=== PATIENT | female | born 1995 | race African-American/Black ===

== ENCOUNTER 2017-01-26 21:21 | Emergency (ER) | payer OTHER ==
[2017-01-26 21:32] VITALS: BP 151/90; PULSE 112; TEMP 98.1; BMI 26.6
--- NOTE | 2017-01-26 22:18 | PDOC ---
History of Present Illness - General Chief Complaint: Injury Stated Complaint: ANKLE PAIN Time Seen by Provider: 01/26/17 21:39 History Source: Patient Exam Limitations: No Limitations - History of Present Illness Initial Comments: 01/26/17 22:16 CC PAIN AND SWELLING POST TRAMPOLINE USE TODAY FOOT AND ANKLE Occurred: reports: just prior to arrival Severity: reports: mild Pain Location: reports: lower extremity Method of Injury: Yes: fall Past History - Past Medical History Allergies/Adverse Reactions: Allergies Allergy/AdvReac Type Severity Reaction Status Date / Time No Known Allergies Allergy Verified 01/26/17 21:32 Home Medications: Ambulatory Orders NK [No Known Home Medication] 01/26/17 Thyroid Disease: Yes - Psycho/Social/Smoking Cessation Hx Anxiety: No Suicidal Ideation: No Smoking History: Never smoked Have you smoked in the past 12 months: No Information on smoking cessation initiated: No Hx Alcohol Use: No Drug/Substance Use Hx: No Substance Use Type: None Review of Systems - Review of Systems Constitutional: No: Chills, Fever, Malaise Respiratory: No: Symptoms reported, Cough Cardiac (ROS): No: Symptoms Reported Musculoskeletal: Yes: Joint Pain, Joint Swelling. No: Back Pain, Neck Pain Integumentary: No: Symptoms Reported, Erythema Neurological: No: Symptoms reported, Numbness, Paresthesia, Tingling *Physical Exam - Vital Signs Last Vital Signs Temp Pulse Resp BP Pulse Ox 98.1 F 112 H 18 151/90 99 01/26/17 21:28 01/26/17 21:28 01/26/17 21:28 01/26/17 21:28 01/26/17 21:28 - Physical Exam General Appearance: Yes: Appropriately Dressed. No: Apparent Distress Neck: positive: Supple. negative: Tender, Rigid Respiratory/Chest: positive: Lungs Clear Extremity: positive: Other (STS RIGH ANKLE WITH TENDERNESS TO LATERAL MALL. ALSO TENDER AT ANTERIOR ANKLE) Integumentary: positive: Normal Color, Dry, Warm. negative: Cyanotic, Erythema , Ecchymosis Neurologic: positive: Alert, Normal Mood/Affect. negative: Fully Oriented, Sensory Deficit ED Treatment Course - ADDITIONAL ORDERS Additional order review: Laboratory Results 01/26/17 21:45 Urine HCG, Qual Negative - RADIOLOGY Radiology Studies Ordered: Category Date Time Status ANKLE & FOOT-RIGHT* [RAD] Stat Radiology 01/26/17 21:45 Ordered Medical Decision Making - Medical Decision Making 01/26/17 22:51 XRAY= NEGATIVE, READ BY THIS ECONOMIC RESEARCH ASSISTANT; WILL SUGGEST ELEVATION, ADVIL FOR PAIN, REST X 2 DAYS; FOLLOW UP LOCAL MD 1 WEEK IF NO BETTER *DC/Admit/Observation/Transfer Diagnosis at time of Disposition: Strain of right ankle Qualifiers: Encounter type: initial encounter Qualified Code(s): S96.911A - Strain of unspecified muscle and tendon at ankle and foot level, right foot, initial encounter - Discharge Dispostion Disposition: HOME Condition at time of disposition: Stable Admit: No - Patient Instructions Additional Instructions: ELEVATE ANKLE; ICE AREA; MOTRIN 400MG 3 TIMES DAILYSEE LOCAL MD 1 WEEK IF NO BETTER
[2017-01-26] MEDS ORDERED: IBUPROFEN 400 MG TABLET (FP) PO ONE ×2 (22:53→22:58)
== END 2017-01-26 23:00 | disposition home or self-care (01) ==
LOC: JERFT 21:21 → SUPCPDRO 21:21 → JERFT 23:00
DX: S96.911A Strain of unspecified muscle and tendon at ankle and foot level, right foot, initial encounter (principal); Y93.44 Activity, trampolining; X58.XXXA Exposure to other specified factors, initial encounter; Y92.9 Unspecified place or not applicable; E07.9 Disorder of thyroid, unspecified
CPT/HCPCS: 73610-TC-RT; 73630-TC-RT; 84703; 99281-25

== ENCOUNTER 2017-03-29 12:35 | Day surgery (SDC) | payer OTHER ==
[2017-03-08 16:25] VITALS: BMI 26.6
[2017-03-29 13:17] VITALS: BP 136/78; PULSE 110; TEMP 99.2
[2017-03-29] MEDS ORDERED: ROCURONIUM BROMIDE 50 MG/5 ML VIAL ONE (13:31)
[2017-03-29] MEDS ORDERED: PROPOFOL 20 ML ONE (13:31)
[2017-03-29] MEDS ORDERED: MIDAZOLAM HCL 2 MG/2 ML SINGLE DOSE VIAL ONE (13:31)
[2017-03-29] MEDS ORDERED: SUCCINYLCHOLINE CHLORIDE 200 MG/10 ML VIAL ONE (13:31)
[2017-03-29] MEDS ORDERED: LIDOCAINE 1%/EPI 1:100000 (50 ML MULTI DOSE VIAL) ONE (13:32)
[2017-03-29] MEDS ORDERED: MICROFIBRILLAR COLLAGEN 1 GM EACH ONE (13:32)
[2017-03-29] MEDS ORDERED: DESFLURANE GAS 240 ML BOTTLE IH ONE (13:35)
== END 2017-03-29 15:13 | disposition home or self-care (01) ==
LOC: JASU-SURG 12:35
PROVIDERS: ATTEND Surgery
PROC: [UNRECOGNIZED PROCEDURE] (principal; 2017-03-29)
DX: Z53.8 Procedure and treatment not carried out for other reasons (principal)
CPT/HCPCS: 36415; 84702; 84703

== ENCOUNTER 2018-11-14 15:59 | Emergency (ER) | payer OTHER ==
[2018-11-14 16:27] VITALS: BP 122/72; PULSE 88; TEMP 98.7; BMI 30.4
[2018-11-14] MEDS ORDERED: ACETAMINOPHEN 500 MG TABLET (FP) PO ONE (16:27)
--- NOTE | 2018-11-14 16:27 | PDOC ---
Rapid Medical Evaluation Time Seen by Provider: 11/14/18 16:24 Medical Evaluation: Allergies Allergy/AdvReac Type Severity Reaction Status Date / Time No Known Allergies Allergy Verified 03/29/17 13:10 11/14/18 16:24 The patient presents with a chief complaint of: low back pain after lifting a window, currently 14 weeks , no vag bleeding c/o of mild lower abd pain , no meds taken I have performed a brief in-person evaluation of this patient; Pertinent physical exam findings: ambulatory, in no respiratory distress, I have ordered the following: tylenol, preg u/s The patient will proceed to the ED for further evaluation. Discharge Disposition - Diagnosis Low back pain - Referrals Referrals: Ryan Magaña MD [Primary Care Provider] - - Patient Instructions - Post Discharge Activity
[2018-11-14] MEDS ORDERED: ACETAMINOPHEN 325 MG TABLET (FP) ONE (17:14)
--- NOTE | 2018-11-14 18:22 | PDOC ---
History of Present Illness - General Chief Complaint: Back Pain Stated Complaint: Back Pain Time Seen by Provider: 11/14/18 16:24 History Source: Patient Exam Limitations: No Limitations - History of Present Illness Initial Comments: 11/14/18 19:07 Pt is a 23 y/o F currently 12 weeks , who presents to the ED for low back pain. Pt states that she was trying to open a heavy window when she felt her back spasm. She states that the pain is mostly on the right. Denies trauma or falling. Denies fevers, chills, frequency, urgency, hematuria, weakness to the extremites, saddle anesthesia, bladder/bowel incontinence, and vaginal bleeding. Past History - Travel Traveled outside of the country in the last 30 days: No Close contact w/someone who was outside of country & ill: No - Past Medical History Allergies/Adverse Reactions: Allergies Allergy/AdvReac Type Severity Reaction Status Date / Time No Known Allergies Allergy Verified 11/14/18 16:25 Home Medications: Ambulatory Orders NK [No Known Home Medication] 11/14/18 Anemia: Yes CVA: No COPD: No HTN: Yes Thyroid Disease: Yes - Suicide/Smoking/Psychosocial Hx Smoking History: Never smoked Have you smoked in the past 12 months: No Information on smoking cessation initiated: No Hx Alcohol Use: No Drug/Substance Use Hx: No Substance Use Type: Alcohol Hx Substance Use Treatment: No Review of Systems - Review of Systems Able to Perform ROS?: Yes Comments:: 11/14/18 19:09 CONSTITUTIONAL: Absent: fever, chills, diaphoresis, generalized weakness, malaise, loss of appetite GASTROINTESTINAL: Absent: abdominal pain, abdominal distension, nausea, vomiting, diarrhea, constipation, melena, hematochezia GENITOURINARY: Absent: dysuria, frequency, urgency, hesitancy, hematuria, flank pain, genital pain, vaginal bleeding MUSCULOSKELETAL: Present: low back pain Absent: arthralgia, joint swelling SKIN: Absent: rash, itching, pallor NEUROLOGIC: Absent: headache, focal weakness or paresthesias, dizziness, unsteady gait, seizure, mental status changes, bladder or bowel incontinence PSYCHIATRIC: Absent: anxiety, depression, suicidal or homicidal ideation, hallucinations. Is the patient limited Tamazight proficient: No *Physical Exam - Vital Signs Last Vital Signs Temp Pulse Resp BP Pulse Ox 98.7 F 88 16 122/72 100 11/14/18 16:25 11/14/18 16:25 11/14/18 16:25 11/14/18 16:25 11/14/18 16:25 - Physical Exam Comments: 11/14/18 19:09 GENERAL: Well developed, well nourished. Awake and alert. No acute distress. HEENT: Normocephalic, atraumatic. PERRLA, EOMI. No conjunctival pallor. Sclera are non- icteric. Moist mucous membranes. Oropharynx is clear. NECK: Supple. Full ROM. No JVD. Carotid pulses 2+ and symmetric, without bruits. No thyromegaly. No lymphadenopathy. ABDOMINAL: Soft. Non-tender. Non-distended. No rebound or guarding. No organomegaly. Normoactive bowel sounds. MUSCULOSKELETAL TTP of the paraspinous muscles along L3-L5 with palpable knot. No midline tenderness. (-) straight leg raise b/l. Normal range of motion at all joints. No bony deformities or tenderness. No CVA tenderness. EXTREMITIES: No cyanosis. No clubbing. No edema. No calf tenderness. SKIN: Warm and dry. Normal capillary refill. No rashes. No jaundice. NEUROLOGICAL: Alert, awake, appropriate. Cranial nerves 2-12 intact. No deficits to light touch and temperature in face, upper extremities and lower extremities. No motor deficits in the in face, upper extremities and lower extremities. Normoreflexic in the upper and lower extremities. Normal speech. Toes are down- going bilaterally. Gait is normal without ataxia. PSYCHIATRIC: Cooperative. Good eye contact. Appropriate mood and affect. Moderate Sedation - Procedure Monitoring Vital Signs: Procedure Monitoring Vital Signs Temperature 98.7 F 11/14/18 16:25 Pulse Rate 88 11/14/18 16:25 Respiratory Rate 16 11/14/18 16:25 Blood Pressure 122/72 11/14/18 16:25 O2 Sat by Pulse Oximetry (%) 100 11/14/18 16:25 ED Treatment Course - Medications Given in the ED: ED Medications Discontinued Medications Generic Name Dose Route Start Last Admin Trade Name Freq PRN Reason Stop Dose Admin Acetaminophen 975 mg 11/14/18 16:27 11/14/18 17:17 Tylenol - PO 11/14/18 16:28 650 mg ONCE ONE Administration Medical Decision Making - Medical Decision Making 11/17/18 09:10 Pt is a 23 y/o F, 12 weeks , who presents to the ED with low back pain after lifting a heavy window. -Pt with TTP of the R paraspinous muscles, L3-L5, with palpable knot consistent with muscle spasm. Negative straight leg raise testing b/l. -No trauma, or fever. No saddle anesthesia or bladder/bowel incontinence. No CVA tenderness. - US shows a single IUP with a heart rate in the 150's. Normal amniotic fluid noted. -Pt is neurologically intact on exam with no focal findings. -Tylenol given with relief of symptoms -DC home. Ortho follow up given for if symptoms do not resolve. -I discussed the physical exam findings, ancillary test results and final diagnoses with the patient. I answered all of the patient's questions. The patient was satisfied with the care received and felt comfortable with the discharge plan and treatment plan. The Patient agrees to follow up with the primary care physician/specialist within 24-72 hours. Return precautions were given. *DC/Admit/Observation/Transfer Diagnosis at time of Disposition: Low back pain Qualifiers: Chronicity: acute Back pain laterality: right Sciatica presence: without sciatica Qualified Code(s): M54.5 - Low back pain - Discharge Dispostion Disposition: HOME Condition at time of disposition: Stable Decision to Admit order: No - Referrals Referrals: Ryan Magaña MD [Primary Care Provider] - - Patient Instructions Printed Discharge Instructions: DI for Low Back Pain Additional Instructions: You have low back pain due to a muscle spasm. Please take Tylenol 650mg every 4 hours to help with the pain. You may use warm compresses on your back to help with her symptoms. Please follow-up with your primary care doctor. If your symptoms do not resolve in 3-5 days, follow-up with orthopedics. A referral has been provided for you. Return to the emergency department if you have worsening back pain, bladder or bowel incontinence, numbness and tingling in her legs, changes in the way you walk, or any new or worsening symptoms. The ultrasound of the baby was normal with a heart rate of 150 - Post Discharge Activity Forms/Work/School Notes: Back to Work
== END 2018-11-14 18:24 | disposition home or self-care (01) ==
LOC: JERFT 15:59
DX: O26.891 Other specified pregnancy related conditions, first trimester (principal); O99.89 Other specified diseases and conditions complicating pregnancy, childbirth and the puerperium; M62.830 Muscle spasm of back; M54.5 Low back pain; O16.1 Unspecified maternal hypertension, first trimester; Z3A.13 13 weeks gestation of pregnancy
CPT/HCPCS: 76801-TC; 99281-25

== ENCOUNTER 2019-05-22 07:40 | Inpatient (IN) | payer OTHER ==
[2019-05-22] MEDS ORDERED: DINOPROSTONE 10 MG VAGINAL SUPPOSITORY VG ONE ×2 (07:58→21:59)
[2019-05-22 08:29] VITALS: BMI 34.5
[2019-05-22] MEDS ORDERED: PROMETHAZINE HCL 25 MG/1 ML VIAL IVPUSH ONE (08:35)
[2019-05-22] MEDS ORDERED: BUTORPHANOL TARTRATE 1 MG/ML VIAL IVPB ONE (08:35)
[2019-05-22 09:06] LABS: HEMOGLOBIN 12.9 GM/dL (10.7-15.3); MCH 28.2 pg (25.7-33.7)
[2019-05-22 09:08] LABS: BASO % 0.2 % (0-2.0); HEMATOCRIT 37.8 % (32.4-45.2); LYMPH % 25.7 % (8-40); MEAN CELL VOLUME 82.9 fl (80-96); MEAN PLT VOLUME 8.2 fl (7.5-11.1); MONO % 7.3 % (3.8-10.2); NEUT % 65.8 % (42.8-82.8); PLATELET COUNT 233 K/MM3 (134-434); RBC 4.56 M/mm3 (3.60-5.2); RDW 14.6 % (11.6-15.6); WHITE BLOOD COUNT 9.7 K/mm3 (4.0-10.0)
--- NOTE | 2019-05-22 09:24 | HP ---
Past Medical History - Admission History of Present Illness: 23 y/o with SIUP 40w6d here for inductionof labor. Pt has hyperthyroidism , on methimazole and followed by endocrinology throughout . Otherwise uncomplicated. GBS negative. Denies contractions/cramps/LOF/VB. + FM. History Source: Patient, Medical Record Limitations to Obtaining History: No Limitations - Past Medical History Cardiovascular: No: HTN Pulmonary: No: Asthma Hepatobiliary: No: Hepatitis B, Hepatitis C Renal/: No: UTI Reproductive: No: Ectopic , Fibroids, PID ...: 2 ...Para: 0 ...Term: 0 ...: 0 ...Spon : 0 ...Induced : 1 ...Multiple Gestation: 0 ...LMP: 08/09/18 ... Weeks Gestation by Dates: 40.6 ...EDC by Dates: 05/16/19 ...EDC by Sono: 05/16/19 Heme/Onc: No: Anemia Infectious Disease: No: HIV, MRSA, STD's Psych: No: Anxiety, Bipolar, Depression Endocrine: Yes: Hyperthyroidism (on methimazole) - Past Surgical History Past Surgical History: Yes: None Hx Myomectomy: No Hx Transabdominal Cerclage: No - Smoking History Smoking history: Never smoked Have you smoked in the past 12 months: No - Alcohol/Substance Use Hx Alcohol Use: No - Social History ADL: Independent History of Recent Travel: No Home Medications - Allergies Allergies/Adverse Reactions: Allergies Allergy/AdvReac Type Severity Reaction Status Date / Time No Known Allergies Allergy Verified 05/22/19 08:29 - Home Medications Home Medications: Ambulatory Orders Vitamins (Sjr) - 1 tab PO DAILY 05/03/19 Propylthiouracil 50 mg PO DAILY 05/22/19 Physical Exam - Maternity Vital Signs: Vital Signs Temperature 98.6 F 05/22/19 08:22 Pulse Rate 82 05/22/19 08:22 Respiratory Rate 20 05/22/19 08:22 Blood Pressure 126/77 05/22/19 08:22 O2 Sat by Pulse Oximetry (%) Constitutional: Yes: Well Nourished, No Distress, Calm Eyes: Yes: Conjunctiva Clear, EOM Intact HENT: Yes: Atraumatic, Normocephalic Neck: Yes: Trachea Midline Cardiovascular: Yes: Regular Rate and Rhythm Lungs: Clear to auscultation - Abdominal Exam/OB Number of Fetuses: Single Presentation: Vertex Contractions: Yes Regularity: Irregular Intensity: Unaware Category: I Accelerations: Uniform Decelerations: None - Vaginal Exam/OB Dilatation (cm): 0 Effacement (%): 0 Amniotic Membrane Status: Intact Presentation: Vertex/Position Station: -3 - Physical Exam Psychiatric: Yes: Alert, Oriented - Labs Lab Results: CBC, BMP 05/22/19 08:20 Hemorrhage Risk Assessment - Risk Factors Medium Risk Factors: Yes: None High Risk Factors: Yes: None Risk Score: 1 Risk Level: Medium Risk Problem List - Problems (1) Post-dates Code(s): O48.0 - POST-TERM Qualifiers: Post-term type: 40-42 weeks gestation Qualified Code(s): O48.0 - Post-term (2) Hyperthyroidism affecting Code(s): O99.280 - ENDO, NUTRITIONAL AND METAB DISEASES COMP PREG, UNSP TRI; E05.90 - THYROTOXICOSIS, UNSP WITHOUT THYROTOXIC CRISIS OR STORM Assessment/Plan FHTs reactive continue methimazole for hyperthyroid IOL, cervidil placed, re evaluate 12 hours regular diet ok until active labor GBS neg
[2019-05-22 09:27] LABS: PROTHROMBIN TIME (PATIENT) 11.8 SEC (9.7-13.0)
[2019-05-22 09:30] LABS: ACTIVATED PTT 28.5 SECONDS (25.2-36.5)
[2019-05-22 09:38] LABS: BLOOD UREA NITROGEN 10.4 mg/dL (7-18); CALCIUM 8.7 mg/dL (8.5-10.1); CREATININE 0.6 mg/dL (0.55-1.3); POTASSIUM 3.6 mmol/L (3.5-5.1)
[2019-05-22] MEDS: DEXTROSE 5%-LACTATED RINGERS 1,000 ML IV SCH (16:15)
--- NOTE | 2019-05-22 21:58 | PN ---
Progress Note, Labor Vaginal Exam #2 Labor Exam Date: 05/22/19 Labor Exam Time: 20:39 Dilatation: 0 Effacement (%): 0 Amniotic Membrane Status: Intact Presentation: Vertex/Position Station: -3 (exam per nursing cervidil removed due to variable decelserations will monitor)
[2019-05-23] MEDS: DEXTROSE 5%-LACTATED RINGERS 1,000 ML IV SCH (01:45)
--- NOTE | 2019-05-23 06:34 | PN ---
Ante-Partal Exam - Subjective Subjective: Pt seen/evaluated and was asleep upon my arrival. First dose of cervidil was removed at approx 2030 after noting recurrent variable decelerations. Had second dose of cervidil placed overnight by laborist contract loader with category 1 tracing upon insertion. After approx 6 hours of cervidil the FHR tracing began having recurrent variable decelerations. The cervidil was removed, the patient' s position changed and she was given IV fluid. The tracing improved and is now category 1. Vital Signs: Vital Signs Temperature 97.9 F 05/23/19 04:00 Pulse Rate 79 05/23/19 06:00 Respiratory Rate 20 05/23/19 06:00 Blood Pressure 130/67 05/23/19 06:00 O2 Sat by Pulse Oximetry (%) Bleeding: Yes Bleeding Description: Mild Headache: No Visual changes: No Right upper quadrant pain: No Pain (scale 1-10): 2 - Contractions Contractions: Yes Regularity: Regular Intensity: Mild Monitor Mode: External - Exam during Labor Heart Rate: 135 Variability: Moderate Category: I Monitor Accelerations: Present Monitor Decelerations: None Exam: Vaginal Dilatation (cm): 2 Effacement (%): 70 Amniotic Membrane Status: Intact Presentation: Vertex Station: -3 - Intrapartum Hemorrhage Risk Medium Risk Factors: None High Risk Factors: None Risk Score: 0 Risk Level: Low Risk - Assessment/Plan Assessment/Plan: 23 y/o P0 with SIUP at 41 weeks cat 1 tracing now without medication discussed plan of care with patient including starting pitocin, pt concerned for FHR decelerations with pitocin as she had recurrent variables with cervidil pt offered this vs. elective c section pt aware of risks of pitocin vs c section pt desires elective c section anesthesia made aware, nursing staff aware
[2019-05-23] MEDS: ELECTROLYTE-148 SOLN 1,000 ML IV SCH (07:00)
--- NOTE | 2019-05-23 07:13 | PN ---
Ante-Partal Exam - Subjective Subjective: Pt now benito every 2 minutes on her own without pitocin. Vital Signs: Vital Signs Temperature 97.9 F 05/23/19 04:00 Pulse Rate 79 05/23/19 06:00 Respiratory Rate 20 05/23/19 06:00 Blood Pressure 130/67 05/23/19 06:00 O2 Sat by Pulse Oximetry (%) - Assessment/Plan Assessment/Plan: Discussed with patient again the plan. Pt aware she is benito every 2 minutes, she is unaware of contractions at this time. Discussed proceeding with labor now as tracing category 1 and she is having her own contractions, may not need to start pitocin. pt declines, she now desires elective c section at this time does not wish to proceed with induction. Anesthesia aware nursery/nursing aware
[2019-05-23] MEDS ORDERED: CITRIC ACID/SODIUM CITRATE 30 ML UNIT-DOSE CUP PO ONE (07:14)
[2019-05-23] MEDS ORDERED: oxyCODONE HCL 5 MG TABLET PO PRN ×2 (07:20)
[2019-05-23] MEDS ORDERED: METHYLERGONOVINE MALEATE 0.2 MG/1 ML AMP IM PRN (07:20)
[2019-05-23] MEDS ORDERED: IBUPROFEN 800 MG/8 ML IJ IVPB PRN (07:20)
[2019-05-23] MEDS ORDERED: OXYTOCIN 20 UNITS in 0.9% NS 20 UNIT/1,000 ML INFUS.BAG IV ONE (07:45)
[2019-05-23] MEDS ORDERED: morphine SULFATE/PF 0.5 MG/ML (2cc Syringe - QUVA) ONE (07:48)
--- NOTE | 2019-05-23 07:59 | PN ---
Progress Note (short form) - Note Progress Note: Discussed c section with patient in detail risks including bleeding/infection/damage to surrounding structures/possible need for repeat c section and risks of future c sections discussed with pt pt aware of all risks patient's mother and grandmother in the room all questions answered informed consent obtained pt still desires elective c section will proceed Problem List - Problems (1) Post-dates Code(s): O48.0 - POST-TERM Qualifiers: Post-term type: 40-42 weeks gestation Qualified Code(s): O48.0 - Post-term (2) Hyperthyroidism affecting Code(s): O99.280 - ENDO, NUTRITIONAL AND METAB DISEASES COMP PREG, UNSP TRI; E05.90 - THYROTOXICOSIS, UNSP WITHOUT THYROTOXIC CRISIS OR STORM
[2019-05-23] MEDS ORDERED: ceFAZolin SODIUM 1 GM VIAL ONE (08:18)
[2019-05-23] MEDS: OXYTOCIN 20 UNITS in 0.9% NS 20 UNIT/1,000 ML INFUS.BAG IV SCH (08:30)
[2019-05-23] MEDS ORDERED: OXYTOCIN 10 UNITS/ML VIAL ONE (08:51)
[2019-05-23] MEDS ORDERED: ONDANSETRON 4 MG/2 ML VIAL IVPUSH PRN (09:09)
--- NOTE | 2019-05-23 09:10 | OP ---
Operative Note - Note: Operative Date: 05/23/19 Pre-Operative Diagnosis: SIUP at 41 weeks, elective delivery Operation: primary LTCS Findings: normal b/l tubes/ovaries, live male Post-Operative Diagnosis: Same as Pre-op Surgeon: Christine Sales Journalists And Other Writers: Manas Burrell Anesthesiologist/RETAIL SECURITY PROFESSIONAL: Guillermo Sterling Anesthesia: Spinal Specimens Removed: placenta Estimated Blood Loss (mls): 600 Operative Report Dictated: Yes
[2019-05-23] MEDS: PROPYLTHIOURACIL 50 MG TABLET (UD) PO SCH (10:30)
[2019-05-23] MEDS: PRENATAL VITAMINS W/ FOLIC ACID TABLET (FP) PO SCH (11:40)
[2019-05-23] MEDS: FERROUS SO4 325 MG TABLET (FP) PO SCH ×2 (11:40→22:19)
--- NOTE | 2019-05-23 19:45 | PN ---
Post Progress Note - Subjective Subjective: Pt doing well, visiting with family at this time. States pain is controlled. no n/v Type of Delivery: Primary C/S Vital Signs: Vital Signs Temperature 98.9 F 05/23/19 17:48 Pulse Rate 83 05/23/19 17:48 Respiratory Rate 18 05/23/19 17:48 Blood Pressure 147/79 05/23/19 17:48 O2 Sat by Pulse Oximetry (%) 100 05/23/19 10:00 Breast Exam: Yes: Soft Uterus: Yes: Fundus Firm Incision: Yes: Dressing dry and intact Abdomen/GI: Yes: Abdomen soft Lochia: Yes: Rubra Lochia, amount: Small Extremities: Yes: Calves non-tender Perineum: Yes: Intact - Labs Labs: CBC WBC 9.7 K/mm3 (4.0-10.0) 05/22/19 08:20 RBC 4.56 M/mm3 (3.60-5.2) 05/22/19 08:20 Hgb 12.9 GM/dL (10.7-15.3) 05/22/19 08:20 Hct 37.8 % (32.4-45.2) 05/22/19 08:20 MCV 82.9 fl (80-96) 05/22/19 08:20 MCH 28.2 pg (25.7-33.7) 05/22/19 08:20 MCHC 34.0 g/dl (32.0-36.0) 05/22/19 08:20 RDW 14.6 % (11.6-15.6) 05/22/19 08:20 Plt Count 233 K/MM3 (134-434) 05/22/19 08:20 MPV 8.2 fl (7.5-11.1) 05/22/19 08:20 Absolute Neuts (auto) 6.4 K/mm3 (1.5-8.0) 05/22/19 08:20 Neutrophils % 65.8 % (42.8-82.8) 05/22/19 08:20 Lymphocytes % 25.7 % (8-40) D 05/22/19 08:20 Monocytes % 7.3 % (3.8-10.2) 05/22/19 08:20 Eosinophils % 1.0 % (0-4.5) D 05/22/19 08:20 Basophils % 0.2 % (0-2.0) 05/22/19 08:20 Nucleated RBC % 0 % (0-0) 05/22/19 08:20 Problem List - Problems (1) Post-dates Code(s): O48.0 - POST-TERM Qualifiers: Post-term type: 40-42 weeks gestation Qualified Code(s): O48.0 - Post-term (2) Hyperthyroidism affecting Code(s): O99.280 - ENDO, NUTRITIONAL AND METAB DISEASES COMP PREG, UNSP TRI; E05.90 - THYROTOXICOSIS, UNSP WITHOUT THYROTOXIC CRISIS OR STORM (3) delivery delivered Code(s): O82 - ENCOUNTER FOR DELIVERY WITHOUT INDICATION Assessment/Plan 23 y/o POD#0 s/p primary elective c section AFVSS CBC in a.m. carmen out in a.m. routine care
--- NOTE | 2019-05-24 06:18 | PN ---
Post Progress Note - Subjective Subjective: Pt doing well, resting in bed. No complaints. Type of Delivery: Primary C/S Vital Signs: Vital Signs Temperature 97.9 F 05/24/19 05:52 Pulse Rate 74 05/24/19 05:52 Respiratory Rate 20 05/24/19 06:00 Blood Pressure 135/80 05/24/19 05:52 O2 Sat by Pulse Oximetry (%) 100 05/23/19 10:00 Uterus: Yes: Fundus Firm Incision: Yes: Dressing dry and intact Abdomen/GI: Yes: Abdomen soft, Tender (appropriate post surgical tenderness), Tolerating PO (clears). No: Abdominal Distention Lochia: Yes: Rubra Lochia, amount: Small Extremities: Yes: Calves non-tender Perineum: Yes: Intact - Labs Labs: CBC WBC 9.7 K/mm3 (4.0-10.0) 05/22/19 08:20 RBC 4.56 M/mm3 (3.60-5.2) 05/22/19 08:20 Hgb 12.9 GM/dL (10.7-15.3) 05/22/19 08:20 Hct 37.8 % (32.4-45.2) 05/22/19 08:20 MCV 82.9 fl (80-96) 05/22/19 08:20 MCH 28.2 pg (25.7-33.7) 05/22/19 08:20 MCHC 34.0 g/dl (32.0-36.0) 05/22/19 08:20 RDW 14.6 % (11.6-15.6) 05/22/19 08:20 Plt Count 233 K/MM3 (134-434) 05/22/19 08:20 MPV 8.2 fl (7.5-11.1) 05/22/19 08:20 Absolute Neuts (auto) 6.4 K/mm3 (1.5-8.0) 05/22/19 08:20 Neutrophils % 65.8 % (42.8-82.8) 05/22/19 08:20 Lymphocytes % 25.7 % (8-40) D 05/22/19 08:20 Monocytes % 7.3 % (3.8-10.2) 05/22/19 08:20 Eosinophils % 1.0 % (0-4.5) D 05/22/19 08:20 Basophils % 0.2 % (0-2.0) 05/22/19 08:20 Nucleated RBC % 0 % (0-0) 05/22/19 08:20 Problem List - Problems (1) Post-dates Code(s): O48.0 - POST-TERM Qualifiers: Post-term type: 40-42 weeks gestation Qualified Code(s): O48.0 - Post-term (2) Hyperthyroidism affecting Code(s): O99.280 - ENDO, NUTRITIONAL AND METAB DISEASES COMP PREG, UNSP TRI; E05.90 - THYROTOXICOSIS, UNSP WITHOUT THYROTOXIC CRISIS OR STORM (3) delivery delivered Code(s): O82 - ENCOUNTER FOR DELIVERY WITHOUT INDICATION Assessment/Plan 23 y/o POD#1 s/p primary elective c section AFVSS await CBC d/c carmen advance diet as tolerated encourage ambulation routine care
[2019-05-24] MEDS ORDERED: BISACODYL 10 MG SUPP.RECT RC PRN (07:20)
[2019-05-24 07:43] LABS: BASO % 0.2 % (0-2.0); EOS % 0.6 % (0-4.5); HEMATOCRIT 35.1 % (32.4-45.2); HEMOGLOBIN 11.7 GM/dL (10.7-15.3); MCH 27.8 pg (25.7-33.7); MCHC 33.4 g/dl (32.0-36.0); MEAN CELL VOLUME 83.4 fl (80-96); MEAN PLT VOLUME 8.6 fl (7.5-11.1); MONO % 7.7 % (3.8-10.2); NEUT % 67.5 % (42.8-82.8); RBC 4.21 M/mm3 (3.60-5.2); RDW 14.4 % (11.6-15.6); WHITE BLOOD COUNT 10.1 K/mm3 (4.0-10.0)
--- NOTE | 2019-05-24 08:46 | PN ---
Progress Note (short form) - Note Progress Note: Anesthesia postop note POD#1. S/P primary under spinal anesthesia. VSS. No apparent post anesthesia complications.
[2019-05-24 08:53] LABS: PLATELET COUNT 211 K/MM3 (134-434)
[2019-05-24] MEDS ORDERED: DIPHTH,PERTUSS(ACELL),TET 0.5 ML DISP.SYRIN IM ONE (10:00)
[2019-05-24] MEDS: DEXTROSE 5%-LACTATED RINGERS 1,000 ML IV SCH ×2 (10:46→17:58)
[2019-05-24] MEDS: ELECTROLYTE-148 SOLN 1,000 ML IV SCH (10:46)
[2019-05-24] MEDS: OXYTOCIN 20 UNITS in 0.9% NS 20 UNIT/1,000 ML INFUS.BAG IV SCH (10:47)
[2019-05-24] MEDS: PROPYLTHIOURACIL 50 MG TABLET (UD) PO SCH (10:52)
[2019-05-24] MEDS: PRENATAL VITAMINS W/ FOLIC ACID TABLET (FP) PO SCH (10:52)
[2019-05-24] MEDS: FERROUS SO4 325 MG TABLET (FP) PO SCH ×2 (10:52→22:24)
[2019-05-24] MEDS: SIMETHICONE 80 MG TAB.CHEW (FP) PO PRN ×2 (14:00→23:02)
[2019-05-24] MEDS: IBUPROFEN 600 MG TABLET (FP) PO PRN ×2 (14:00→23:02)
[2019-05-24] MEDS: ACETAMINOPHEN 325 MG TABLET (FP) PO PRN ×2 (14:01→23:02)
[2019-05-24] MEDS: SENNOSIDES/DOCUSATE COMBO (SENNA PLUS) TABLET (UD) PO PRN (23:02)
--- NOTE | 2019-05-25 07:06 | PN ---
Post Progress Note - Subjective Subjective: 23 yo Para 1 status post primary , seen and evaluated. Doing well; she c/o mild incision pain. Post Day: 2 Type of Delivery: Primary C/S Vital Signs: Vital Signs Temperature 99.1 F 05/24/19 21:01 Pulse Rate 77 05/24/19 21:01 Respiratory Rate 20 05/24/19 21:01 Blood Pressure 136/73 05/24/19 21:01 O2 Sat by Pulse Oximetry (%) 100 05/23/19 10:00 Breast Exam: Yes: Soft Uterus: Yes: Fundus Firm Incision: Yes: Dressing dry and intact Abdomen/GI: Yes: Abdomen soft, Tolerating PO Lochia: Yes: Rubra Lochia, amount: Small Extremities: Yes: Calves non-tender Perineum: Yes: Intact Activity: Ambulating - Labs Labs: CBC WBC 10.1 K/mm3 (4.0-10.0) H 05/24/19 06:40 RBC 4.21 M/mm3 (3.60-5.2) 05/24/19 06:40 Hgb 11.7 GM/dL (10.7-15.3) 05/24/19 06:40 Hct 35.1 % (32.4-45.2) 05/24/19 06:40 MCV 83.4 fl (80-96) 05/24/19 06:40 MCH 27.8 pg (25.7-33.7) 05/24/19 06:40 MCHC 33.4 g/dl (32.0-36.0) 05/24/19 06:40 RDW 14.4 % (11.6-15.6) 05/24/19 06:40 Plt Count 211 K/MM3 (134-434) 05/24/19 06:40 MPV 8.6 fl (7.5-11.1) 05/24/19 06:40 Absolute Neuts (auto) 6.8 K/mm3 (1.5-8.0) 05/24/19 06:40 Neutrophils % 67.5 % (42.8-82.8) 05/24/19 06:40 Lymphocytes % 24.0 % (8-40) 05/24/19 06:40 Monocytes % 7.7 % (3.8-10.2) 05/24/19 06:40 Eosinophils % 0.6 % (0-4.5) 05/24/19 06:40 Basophils % 0.2 % (0-2.0) 05/24/19 06:40 Nucleated RBC % 0 % (0-0) 05/24/19 06:40 Assessment/Plan Status post primary Ambulation Analgesia as needed Continue routine post op care
[2019-05-25] MEDS: PRENATAL VITAMINS W/ FOLIC ACID TABLET (FP) PO SCH (09:57)
[2019-05-25] MEDS: FERROUS SO4 325 MG TABLET (FP) PO SCH ×2 (09:57→21:53)
[2019-05-25] MEDS: PROPYLTHIOURACIL 50 MG TABLET (UD) PO SCH (10:23)
[2019-05-25] MEDS: IBUPROFEN 600 MG TABLET (FP) PO PRN (11:28)
[2019-05-25] MEDS: ACETAMINOPHEN 325 MG TABLET (FP) PO PRN (11:28)
[2019-05-25] MEDS: SIMETHICONE 80 MG TAB.CHEW (FP) PO PRN (11:28)
[2019-05-25] MEDS: SENNOSIDES/DOCUSATE COMBO (SENNA PLUS) TABLET (UD) PO PRN (21:54)
--- NOTE | 2019-05-25 22:14 | OP ---
DATE OF OPERATION: 05/23/2019 PREOPERATIVE DIAGNOSES: Single intrauterine at 41 weeks, elective section. SURGEON: Christine Sales DO MECHANICAL FITTER: TEOFILO Montano ANESTHESIA: Guillermo Sterling MD - spinal anesthesia. ESTIMATED BLOOD LOSS: 600 mL. SPECIMENS REMOVED: Placenta. COMPLICATIONS: None. SPONGE/NEEDLE/INSTRUMENT COUNT: Correct. DISPOSITION: Stable, to PACU. BRIEF HISTORY/PROCEDURE: The patient is a 23-year-old P0 female with a single intrauterine at 41 weeks who was admitted for induction of labor. Underwent Cervidil overnight, which was removed secondary to recurrent heart rate decelerations. On the morning of May 23, 2019, the patient was examined, found to be 1 to 2 cm dilated, which was unchanged from the night prior. At this point, the patient was concerned for heart rate decelerations secondary to those that occurred with the Cervidil overnight. The patient was counseled and she elected to undergo an elective at this time. Consents were signed at this time. She was then taken back to the operating room, given spinal anesthesia, and placed in the dorsal supine position. A Ruiz catheter was placed under sterile conditions. She was prepped and draped in the usual sterile fashion. A hard timeout was performed. A Pfannenstiel skin incision was created in the skin with a scalpel and carried to the underlying layer of rectus fascia sharply. The fascia was incised on either side of the midline sharply and the fascial incision was carried in superior and lateral directions sharply. The fascia was tented upward and dissected off the underlying layer of rectus muscle sharply. The musculature was identified, retracted laterally, and the peritoneum was then entered bluntly and a bladder blade was then inserted. A transverse incision was created in the lower uterine segment, which was carried in a superolateral direction bluntly. The was then delivered in the left occiput transverse position without difficulty. Anterior and posterior shoulders delivered with ease, along with the remainder of the infant. The cord was clamped twice and cut in between. The was taken over to the warmer to be assessed by the Nursery Staff, where Apgars of 9 and 9 were assigned. The placenta was then delivered intact and was manually extracted. The uterus was exteriorized from the abdomen, inspected, and cleared of all amniotic membrane and debris with a dry lap sponge. Hysterotomy was approximated using 1 Vicryl in a running locked fashion and a 2nd imbricating layer using 0 Biosyn suture. Excellent hemostasis was achieved. Bilateral tubes and ovaries were noted to be normal. The posterior cul-de-sac was suctioned and the uterus was placed back into the abdomen. Again, the hysterotomy was noted to be hemostatic. The peritoneum was reapproximated using 2-0 chromic in a running fashion. The musculature was reapproximated with 2 interrupted suture. The fascia was reapproximated using 1 Vicryl in a running fashion. The subcutaneous tissue was irrigated, reapproximated using 1 Vicryl in a running fashion. The skin was reapproximated in a subcuticular fashion using 3-0 Vicryl and Steri-Strips were applied. The patient tolerated the procedure well and was recovering in stable condition in the PACU after the procedure. Sponge, needle, and instrument count was reported to be correct. CHRISTINE SALES DO /[id number]
[2019-05-26] MEDS: SIMETHICONE 80 MG TAB.CHEW (FP) PO PRN (00:17)
[2019-05-26] MEDS: ACETAMINOPHEN 325 MG TABLET (FP) PO PRN (00:17)
[2019-05-26] MEDS: IBUPROFEN 600 MG TABLET (FP) PO PRN (00:20)
[2019-05-26 07:48] LABS: BASO % 0.3 % (0-2.0); EOS % 2.2 % (0-4.5); HEMOGLOBIN 11.7 GM/dL (10.7-15.3); MCH 27.8 pg (25.7-33.7); MCHC 33.5 g/dl (32.0-36.0); MEAN PLT VOLUME 8.5 fl (7.5-11.1); MONO % 6.6 % (3.8-10.2); NEUT % 62.9 % (42.8-82.8); RBC 4.22 M/mm3 (3.60-5.2); RDW 14.3 % (11.6-15.6)
[2019-05-26 08:30] LABS: PLATELET COUNT 266 K/MM3 (134-434)
[2019-05-26] MEDS: PRENATAL VITAMINS W/ FOLIC ACID TABLET (FP) PO SCH (09:08)
[2019-05-26] MEDS: FERROUS SO4 325 MG TABLET (FP) PO SCH (09:08)
[2019-05-26] MEDS: PROPYLTHIOURACIL 50 MG TABLET (UD) PO SCH (09:09)
--- NOTE | 2019-05-26 09:22 | DS ---
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: Vital Signs Temperature 97.8 F 05/25/19 22:00 Pulse Rate 65 05/25/19 22:00 Respiratory Rate 18 05/25/19 22:00 Blood Pressure 144/94 05/25/19 22:00 O2 Sat by Pulse Oximetry (%) 100 05/23/19 10:00 Constitutional: Yes: Well Nourished Eyes: Yes: Conjunctiva Clear HENT: Yes: Atraumatic Neck: Yes: Supple Cardiovascular: Yes: Regular Rate and Rhythm Respiratory: Yes: Regular Gastrointestinal: Yes: Normal Bowel Sounds Renal/: Yes: WNL Pelvis: Yes: WNL External Genitalia: Yes: Normal Vaginal Exam: Yes: Normal Cervix: Yes: Normal Uterus: Yes: Firm Wound/Incision: Yes: Well Approximated, Steri Strips (in place) ...Motor Strength: WNL Psychiatric: Yes: Alert, Oriented Labs: CBC, BMP 05/26/19 06:55 05/22/19 08:00 Delivery - Delivery Type of Anesthesia: Spinal Episiotomy/Laceration: None EBL (cc): 600 Delivery, Single - Stages of Labor Date of Delivery: 05/23/19 Time of Delivery: 08:22 Time Placenta Delivered: 08:23 - Condition of Infant Funeral Pre Arrangement Counselor/On Line Csr Present: Yes Name: Sherrie Urena Infant Gender: Male Weight: 7 lb 8 oz Position: Right, OT Total Hours ROM (Hrs/Mins): 2min - 1 Minute Total Score: 9 5 Minutes Total Score: 9 - Feeding Plan Initial Plan: Elected not to breastfeed exclusively throughout hospitalization Discharge Summary Reason For Visit: INDUCTION OF LABOR Current Active Problems delivery delivered (Acute) Hyperthyroidism affecting (Acute) Post term over 40 weeks (Acute) Post-dates (Acute) Procedures: Principal: Primary Low transverse Hospital Course: Routine post op care Condition: Good - Instructions Diet, Activity, Other Instructions: Regular diet No driving, no lifting x 4 weeks F/U with MD in 1 week for wound care Disposition: HOME - Home Medications Comprehensive Discharge Medication List: Ambulatory Orders Vitamins (Sjr) - 1 tab PO DAILY 05/03/19 Propylthiouracil 50 mg PO DAILY 05/22/19
[2019-05-26 12:06] VITALS: BP 123/67; PULSE 71; TEMP 98.2
--- NOTE | 2019-05-29 16:27 | PATH ---
Surgical Pathology Report Patient Name: PATITO NUÑEZ Med. Rec. #: [id number] /Age/Gender: 1995 (Age: 23) / F Account: [id number] Location: 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 Specimen(s) Received PLACENTA Clinical History at 41 weeks for elective , history of hyperthyroidism Final Diagnosis PLACENTA, SECTION: 395 G THIRD TRIMESTER PLACENTA WITH TRIVASCULAR UMBILICAL CORD AND UNREMARKABLE PLACENTAL MEMBRANES. Electronically Signed Mónica Herr M.D. Gross Description The specimen is received fresh labeled placenta and is a 395 gram, 16.5 x 13.5 x 2.3 cm. placenta with attached membranes and umbilical cord. The attached membranes are hoyos, translucent with focal opacities and insert marginally. The umbilical cord measures 32 cm. in length and averages 0.9 cm. in diameter. The cord inserts centrally. No true knots or strictures are identified. Cut surface of the umbilical cord reveals 3 vessels. The surface is govea-blue with minimal fibrin deposition and appropriate caliber vessels. The maternal surface is red-brown with focal defects. Sectioning reveals red-brown, spongy parenchyma. No lesions are identified. Mobile Lab Technician sections are submitted in three cassettes as follows: 1- membrane rolls and umbilical cord; 2-3- full thickness sections of placenta. /05/27/2019 [facility]05/27/2019
== END 2019-05-26 11:35 | disposition home or self-care (01) | DRG 540 ==
LOC: JLDR 07:40 → J3W 05-23 11:00
PROVIDERS: ADMIT Obstetrics & Gynecology; ATTEND Obstetrics & Gynecology
PROC: 10D00Z1 Extraction of Products of Conception, Low, Open Approach (ICD-10-PCS; principal; 2019-05-23)
DX: O48.0 Post-term pregnancy (principal); O99.284 Endocrine, nutritional and metabolic diseases complicating childbirth; Z3A.41 41 weeks gestation of pregnancy; E05.90 Thyrotoxicosis, unspecified without thyrotoxic crisis or storm; Z37.0 Single live birth
CPT/HCPCS: 36415; 80048; 85025; 85610; 85730; 86593; 86850; 86900; 86901; 88307-TC; 90715

== ENCOUNTER 2019-09-11 16:50 | Emergency (ER) | payer OTHER ==
[2019-09-11 17:05] VITALS: BP 140/74; PULSE 78; TEMP 98.6; BMI 31.1
--- NOTE | 2019-09-11 17:05 | PDOC ---
Rapid Medical Evaluation Time Seen by Provider: 09/11/19 17:03 Medical Evaluation: Allergies Allergy/AdvReac Type Severity Reaction Status Date / Time No Known Allergies Allergy Verified 05/22/19 08:29 09/11/19 17:03 I have performed a brief in-person evaluation of this patient. The patient presents with a chief complaint of: 2 days of R sided ear pain radiating down the jaw, (+)decreased hearing. No fever/chills. The patient will proceed to the ED for further evaluation. Discharge Disposition - Diagnosis Ear pain - Referrals - Patient Instructions - Post Discharge Activity
[2019-09-11] MEDS ORDERED: IBUPROFEN 400 MG TABLET (FP) PO ONE ×2 (17:35→17:36)
--- NOTE | 2019-09-11 17:40 | PDOC ---
History of Present Illness - General Chief Complaint: Ear Problem Stated Complaint: EAR PAIN Time Seen by Provider: 09/11/19 17:03 History Source: Patient - History of Present Illness Timing/Duration: reports: yesterday Past History - Past Medical History Allergies/Adverse Reactions: Allergies Allergy/AdvReac Type Severity Reaction Status Date / Time No Known Allergies Allergy Verified 09/11/19 17:06 Home Medications: Ambulatory Orders Vitamins (Sjr) - 1 tab PO DAILY 05/03/19 Propylthiouracil 50 mg PO DAILY 05/22/19 Ibuprofen [Motrin -] 600 mg PO QID PRN #28 tablet 05/26/19 Oxycodone HCl/Acetaminophen [Percocet 5-325 mg Tablet -] 1 tab PO Q4H #20 tablet MDD 6 05/26/19 Amoxicillin 875 mg PO BID #14 tablet 09/11/19 Ciprofloxacin HCl/Dexameth [Ciprodex Otic Suspension] 4 drop AD BID #1 bottle Anemia: Yes Asthma: No Cancer: No Cardiac Disorders: No CVA: No COPD: No Diabetes: No HTN: No Seizures: No Thyroid Disease: Yes (hyperthyroid) - Psycho Social/Smoking Cessation Hx Smoking History: Never smoked Have you smoked in the past 12 months: No Hx Alcohol Use: No Drug/Substance Use Hx: No Substance Use Type: Alcohol Hx Substance Use Treatment: No Review of Systems - Review of Systems Constitutional: No: Chills, Fever HEENTM: Yes: Ear Pain. No: Throat Pain Respiratory: No: Cough *Physical Exam - Vital Signs Last Vital Signs Temp Pulse Resp BP Pulse Ox 98.6 F 78 16 140/74 98 09/11/19 17:03 09/11/19 17:03 09/11/19 17:03 09/11/19 17:03 09/11/19 17:03 - Physical Exam General Appearance: Yes: Appropriately Dressed. No: Apparent Distress HEENT: positive: EOMI, CHRISTIANO, Normal Voice, Pharynx Normal, Other (purulent discharge w/ minimal swelling to R canal, unable to visualize TM, no swelling/ ttp over mastoid). negative: Scleral Icterus (R), Scleral Icterus (L) Neck: positive: Supple. negative: Lymphadenopathy (R), Lymphadenopathy (L) Respiratory/Chest: negative: Respiratory Distress Integumentary: positive: Dry, Warm Neurologic: positive: Fully Oriented, Alert, Normal Mood/Affect Medical Decision Making - Medical Decision Making 09/11/19 17:37 23-year-old female denies any past medical history here with severe right ear pain since yesterday. No otorrhea, sore throat, fever or chills. No sick contacts see exam Otitis externa, unable to visualize TM -dc w/ top and oral bx -To return as needed Discharge - Discharge Information Problems reviewed: Yes Clinical Impression/Diagnosis: Otitis externa Qualifiers: Otitis externa type: unspecified type Chronicity: acute Laterality: right Qualified Code(s): H60.501 - Unspecified acute noninfective otitis externa, right ear Condition: Good Disposition: HOME - Additional Discharge Information Prescriptions: Amoxicillin 875 mg PO BID #14 tablet Ciprofloxacin HCl/Dexameth [Ciprodex Otic Suspension] 4 drop AD BID #1 bottle - Follow up/Referral - Patient Discharge Instructions Patient Printed Discharge Instructions: DI for Otitis Externa Additional Instructions: You were treated for an ear infection. Take antibiotics as prescribed. You can take Motrin or Tylenol as needed for pain These medication can passed through your breast milk so if you are breast- feeding, you should refrain from doing so until you have completed medication - Post Discharge Activity Work/Back to School Note: Back to Work
== END 2019-09-11 17:39 | disposition home or self-care (01) ==
LOC: JERFT 16:50
DX: H92.01 Otalgia, right ear (principal); D64.9 Anemia, unspecified; E07.9 Disorder of thyroid, unspecified
CPT/HCPCS: 99281-25

== ENCOUNTER 2019-12-02 10:04 | Emergency (ER) | payer OTHER ==
[2019-12-02 10:24] VITALS: BMI 27.1
[2019-12-02 10:52] LABS: BASO % 0.3 % (0-2.0); EOS % 1.1 % (0-4.5); HEMATOCRIT 37.8 % (32.4-45.2); HEMOGLOBIN 12.1 GM/dL (10.7-15.3); LYMPH % 27.8 % (8-40); MCH 24.4 pg (25.7-33.7); MEAN CELL VOLUME 76.2 fl (80-96); MEAN PLT VOLUME 8.6 fl (7.5-11.1); MONO % 7.4 % (3.8-10.2); NEUT % 63.4 % (42.8-82.8); PLATELET COUNT 272 K/MM3 (134-434); RBC 4.96 M/mm3 (3.60-5.2); RDW 15.7 % (11.6-15.6); WHITE BLOOD COUNT 8.1 K/mm3 (4.0-10.0)
[2019-12-02 11:27] LABS: BILIRUBIN,TOTAL 0.4 mg/dL (0.2-1); BLOOD UREA NITROGEN 8.2 mg/dL (7-18); CALCIUM 9.1 mg/dL (8.5-10.1); CREATININE 0.8 mg/dL (0.55-1.3); POTASSIUM 3.6 mmol/L (3.5-5.1); TOT PROT 8.2 g/dl (6.4-8.2)
--- NOTE | 2019-12-02 13:21 | PDOC ---
Documentation entered by Margaux Trevino SCRIBE, acting as scribe for Lula Kim MD. Lula Kim MD: This documentation has been prepared by the Uriel taveras Xhesika, SCRIBE, under my direction and personally reviewed by me in its entirety. I confirm that the documentation accurately reflects all work, treatment, procedures, and medical decision making performed by me. 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 Pt states she was walking to work when she felt sudden onset of heavy vaginal bleeding with clots. Pt states she had a 6 months ago at [facility] with Dr. Sales and since then she has been having normal menstrual cycles since then. Pt states her last menstrual menstrual period was 11/10/19. The patient denies chest pain, shortness of breath, headache and dizziness. Denies fever, chills, cough, nausea, vomiting, diarrhea and constipation. Denies dysuria, frequency, urgency and hematuria. Allergies: NKDA Past surgical history: Social history: social hookah and alcohol use Is this a multiple visit Asthma Patient?: No Past History - Past Medical History Allergies/Adverse Reactions: Allergies Allergy/AdvReac Type Severity Reaction Status Date / Time No Known Allergies Allergy Verified 12/02/19 10:10 Home Medications: Ambulatory Orders NK [No Known Home Medication] 12/02/19 Anemia: Yes Asthma: No Cancer: No Cardiac Disorders: No CVA: No COPD: No Diabetes: No HTN: No Seizures: No Thyroid Disease: Yes (hyperthyroid) - Reproductive History Is Patient Now?: No (#): 1 Para: 1 - Immunization History Immunization Up to Date: Yes - Psycho Social/Smoking Cessation Hx Smoking History: Never smoked Have you smoked in the past 12 months: No Hx Alcohol Use: No Drug/Substance Use Hx: No Substance Use Type: Alcohol Hx Substance Use Treatment: No Review of Systems - Review of Systems Able to Perform ROS?: Yes Comments:: 12/02/19 11:13 GENERAL/CONSTITUTIONAL: No fever or chills. No weakness. HEAD, EYES, EARS, NOSE AND THROAT: No change in vision. No ear pain or discharge. No sore throat. CARDIOVASCULAR: No chest pain or shortness of breath. RESPIRATORY: No cough, wheezing, or hemoptysis. GASTROINTESTINAL: No nausea, vomiting, diarrhea or constipation. GENITOURINARY: No dysuria, frequency, or change in urination. MUSCULOSKELETAL: No joint or muscle swelling or pain. No neck or back pain. : + Vaginal bleeding SKIN: No rash NEUROLOGIC: + lightheadedness. No headache, vertigo, loss of consciousness, or change in strength/sensation. ENDOCRINE: No increased thirst. No abnormal weight change. HEMATOLOGIC/LYMPHATIC: No anemia, easy bleeding, or history of blood clots. ALLERGIC/IMMUNOLOGIC: No hives or skin allergy. *Physical Exam - Vital Signs Last Vital Signs Temp Pulse Resp BP Pulse Ox 98.2 F 75 18 166/104 H 100 12/02/19 10:10 12/02/19 10:10 12/02/19 10:10 12/02/19 10:10 12/02/19 10:10 - Physical Exam 12/02/19 11:14 GENERAL: The patient is in no acute distress. LUNGS: Breath sounds equal, clear to auscultation bilaterally. No wheezes, and no crackles. HEART:Regular rate and rhythm, normal S1 and S2 without murmur, rub or gallop. ABDOMEN: + abdominal tenderness. Soft, normoactive bowel sounds. No guarding, no rebound. No masses palpable. PELVIC: +clots in vault. +blood pooling in vault. + minimal uterine tenderness. Normal adnexal. NO CMT. EXTREMITIES: Normal range of motion, no edema. No clubbing or cyanosis. No erythema, or tenderness. NEUROLOGICAL: Cranial nerves II through XII grossly intact. Normal speech. No focal neurological deficits. MUSCULOSKELETAL: Back non-tender to palpation, no CVA tenderness SKIN: Warm, Dry, normal turgor, no rashes or lesions noted. ED Treatment Course - LABORATORY CBC & Chemistry Diagram: 12/02/19 10:17 12/02/19 10:17 - ADDITIONAL ORDERS Additional order review: 12/02/19 10:17 RBC 4.96 MCV 76.2 L MCHC 32.0 RDW 15.7 H MPV 8.6 Neutrophils % 63.4 Lymphocytes % 27.8 Monocytes % 7.4 Eosinophils % 1.1 Basophils % 0.3 - RADIOLOGY Radiology Studies Ordered: Category Date Time Status TRANSVAGINAL ULTRASOUND US [US] Stat Ultrasound 12/02/19 11:06 Ordered Medical Decision Making - Medical Decision Making 12/02/19 11:08 Laboratory Tests 12/02/19 10:17 WBC 8.1 Hgb 12.1 Hct 37.8 Plt Count 272 12/02/19 13:19 Laboratory Tests 12/02/19 12/02/19 12/02/19 10:17 10:17 10:17 BUN 8.2 Creatinine 0.8 Serum , Qual Positive Blood Type A POSITIVE Ultrasound reveals: Endometrial stripe measures 8 mm in thickness, with a cystic density measuring 5X 4 mm that contains internal echoes. 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 Pretty Thank you for coming in to the ER today Please be sure to follow up with the SCHOOL PRINCIPAL in 2 days OR come back to the ER for repeat labs/Ultrasound If you have bleeding that is heavy - saturating 2 pads/hour x 2 hours, lightheadedness, dizziness please return to the ER - Post Discharge Activity Work/Back to School Note: Back to Work
[2019-12-02 13:25] VITALS: BP 166/104; PULSE 78; TEMP 98
== END 2019-12-02 14:21 | disposition home or self-care (01) ==
LOC: JER 10:04
DX: N93.9 Abnormal uterine and vaginal bleeding, unspecified (principal); E07.9 Disorder of thyroid, unspecified; D64.9 Anemia, unspecified
CPT/HCPCS: 36415; 76830-TC; 80053; 84443; 84702; 84703; 85025; 86850; 86900; 86901; 99284-25

== ENCOUNTER 2019-12-04 23:19 | Emergency (ER) | payer OTHER ==
[2019-12-04 23:28] VITALS: TEMP 98.6; BMI 29.0
--- NOTE | 2019-12-05 00:03 | PDOC ---
History of Present Illness - General Chief Complaint: Vaginal Bleeding Stated Complaint: VAGINAL BLEEDING Time Seen by Provider: 12/05/19 00:02 History Source: Patient Exam Limitations: No Limitations - History of Present Illness Initial Comments: 12/05/19 00:17 24yF w PMHx hypothyroidism presenting w 2d continuous heavy vaginal bleeding with suprapubic discomfort. Presented to our ED 2d ago for the same vaginal bleeding attributed to dysfunctional uterine bleeding, bHCG 14, US showed 8mm endometrial stripe thickness with 5x4mm cystic density w internal echoes, told to return for repeat HCG and ultrasound. Also feeling lightheaded. Denies taking any pain meds, not on blood thinners. Denies fever, chest pain, SOB, nausea/vomiting, urinary symptoms. OBGYN Dr Mina Past History - Past Medical History Allergies/Adverse Reactions: Allergies Allergy/AdvReac Type Severity Reaction Status Date / Time No Known Allergies Allergy Verified 12/04/19 23:24 Home Medications: Ambulatory Orders NK [No Known Home Medication] 12/02/19 Anemia: Yes Asthma: No Cancer: No Cardiac Disorders: No CVA: No COPD: No Diabetes: No HTN: No Seizures: No Thyroid Disease: Yes (hyperthyroid) - Reproductive History (#): 1 Para: 1 - Immunization History Immunization Up to Date: Yes - Psycho Social/Smoking Cessation Hx Smoking History: Never smoked Have you smoked in the past 12 months: No Hx Alcohol Use: No Drug/Substance Use Hx: No Substance Use Type: Alcohol Hx Substance Use Treatment: No Review of Systems - Review of Systems Constitutional: No: Chills, Fever HEENTM: No: Eye Pain, Nose Pain, Throat Pain, Mouth Pain Respiratory: No: Cough, Shortness of Breath Cardiac (ROS): Yes: Lightheadedness. No: Chest Pain, Palpitations, Syncope ABD/GI: No: Abdominal Distended, Constipated, Diarrhea, Nausea, Vomiting : No: Burning, Dysuria, Flank Pain Musculoskeletal: No: Back Pain, Joint Pain, Muscle Weakness Integumentary: No: Bruising, Dryness, Erythema Neurological: No: Headache, Seizure, Tingling Psychiatric: No: Anxiety, Depression, Stressors Endocrine: No: Excessive Sweating, Flushing, Intolerance to Cold, Intolerance to Heat *Physical Exam - Vital Signs Last Vital Signs Temp Pulse Resp BP Pulse Ox 98.6 F 90 18 136/88 97 12/04/19 23:22 12/04/19 23:22 12/04/19 23:22 12/04/19 23:22 12/04/19 23:22 - Physical Exam General Appearance: Yes: Nourished, Appropriately Dressed, Mild Distress HEENT: positive: EOMI, CHRISTIANO, Normal Voice, Hearing Grossly Normal. negative: Scleral Icterus (R), Scleral Icterus (L), Nasal Congestion, Rhinorrhea Respiratory/Chest: positive: Lungs Clear, Normal Breath Sounds. negative: Chest Tender, Respiratory Distress Cardiovascular: positive: Regular Rhythm, Regular Rate, S1, S2. negative: Edema , Murmur Gastrointestinal/Abdominal: positive: Normal Bowel Sounds, Flat, Soft. negative : Tender, Organomegaly Extremity: positive: Normal Capillary Refill Integumentary: positive: Normal Color Neurologic: positive: Fully Oriented, Alert, Normal Response, Responsive. negative: Numbness, Confused, Disoriented ED Treatment Course - LABORATORY CBC & Chemistry Diagram: 12/05/19 00:35 12/05/19 00:35 Medical Decision Making - Medical Decision Making 12/05/19 01:11 US --- 24yF w PMHx hypothyroidism presenting w 2d continuous heavy vaginal bleeding with suprapubic discomfort likely d/t miscarriage (vaginal bleeding, decreasing HCG 14 2d ago to 9.6 today). Rule out anemia Anticipate DC home - pending CBC, US Signed out to night team Discharge - Discharge Information Problems reviewed: Yes Clinical Impression/Diagnosis: Vaginal bleeding Condition: Stable - Follow up/Referral - Patient Discharge Instructions - Post Discharge Activity
[2019-12-05 01:22] LABS: BASO % 0.2 % (0-2.0); EOS % 2.3 % (0-4.5); HEMATOCRIT 33.6 % (32.4-45.2); HEMOGLOBIN 10.9 GM/dL (10.7-15.3); LYMPH % 34.1 % (8-40); MCH 24.5 pg (25.7-33.7); MCHC 32.6 g/dl (32.0-36.0); MEAN CELL VOLUME 75.2 fl (80-96); MEAN PLT VOLUME 8.8 fl (7.5-11.1); MONO % 7.4 % (3.8-10.2); PLATELET COUNT 272 K/MM3 (134-434); RBC 4.46 M/mm3 (3.60-5.2); RDW 15.6 % (11.6-15.6); WHITE BLOOD COUNT 8.8 K/mm3 (4.0-10.0)
[2019-12-05 01:45] LABS: ALBUMIN 3.7 g/dl (3.4-5.0); BILIRUBIN,TOTAL 0.3 mg/dL (0.2-1); BLOOD UREA NITROGEN 10.1 mg/dL (7-18); CALCIUM 8.9 mg/dL (8.5-10.1); CREATININE 0.7 mg/dL (0.55-1.3); POTASSIUM 4.1 mmol/L (3.5-5.1); TOT PROT 7.5 g/dl (6.4-8.2)
--- NOTE | 2019-12-05 03:10 | PDOC ---
*Physical Exam - Vital Signs Last Vital Signs Temp Pulse Resp BP Pulse Ox 98.6 F 90 18 136/88 97 12/04/19 23:22 12/04/19 23:22 12/04/19 23:22 12/04/19 23:22 12/04/19 23:22 ED Treatment Course - LABORATORY CBC & Chemistry Diagram: 12/05/19 00:35 12/05/19 00:35 - ADDITIONAL ORDERS Additional order review: Laboratory Results 12/05/19 12/05/19 00:35 00:35 Sodium 138 Potassium 4.1 Chloride 106 Carbon Dioxide 26 Anion Gap 6 L BUN 10.1 Creatinine 0.7 Est GFR (CKD-EPI)AfAm 140.55 Est GFR (CKD-EPI)NonAf 121.27 Random Glucose 94 Calcium 8.9 Total Bilirubin 0.3 AST 14 L ALT 23 Alkaline Phosphatase 90 Total Protein 7.5 Albumin 3.7 Beta HCG, Quant 9.6 12/05/19 00:35 RBC 4.46 MCV 75.2 L MCHC 32.6 RDW 15.6 MPV 8.8 Neutrophils % 56.0 Lymphocytes % 34.1 D Monocytes % 7.4 Eosinophils % 2.3 D Basophils % 0.2 Medical Decision Making - Medical Decision Making Sign out received from Dr. Brink. 24F p/w vaginal bleeding, recent evaluation 2 days ago with decreasing b-Hcg likely representing spontaneous . Pending: Ultrasound read Dispo: Discharge with manager forms follow up --- US notable for small intrauterine cystic structure. Discussed results of scan and declining hcg level likely representing spontaneous . Plan for discharge with manager forms follow up. Discharge - Discharge Information Problems reviewed: Yes Clinical Impression/Diagnosis: Vaginal bleeding Condition: Stable Disposition: HOME - Admission No - Follow up/Referral - Patient Discharge Instructions Patient Printed Discharge Instructions: DI for Miscarriage Additional Instructions: You were seen in the ER for vaginal bleeding. Your bloodwork was normal. Your Hcg blood level was decreasing, which indicates a spontaneous miscarriage. Your ultrasound showed a small cyst in the uterus - we gave you a copy of your ultrasound results. Please be sure to follow up with your manager forms as soon as possible, in the next 2-3 days. Please return to the ER if you develop weakness , confusion, high fevers, chest pain, or trouble breathing. - Post Discharge Activity
[2019-12-05 04:26] VITALS: BP 134/85; PULSE 84
--- NOTE | 2019-12-08 15:24 | PDOC ---
Documentation entered by Nghia Mcgarry SCRIBE, acting as scribe for Clem Jacobs MD. Clem Jacobs MD: This documentation has been prepared by the Zeferino taveras Daniel, SCRIBE, under my direction and personally reviewed by me in its entirety. I confirm that the documentation accurately reflects all work, treatment, procedures, and medical decision making performed by me. Attending Attestation - Resident Resident Name: [place]Jeff[place] - ED Attending Attestation I have performed the following: I have examined & evaluated the patient, The case was reviewed & discussed with the resident, I agree w/resident's findings & plan, Exceptions are as noted - HPI HPI: 12/05/19 01:00 The patient is a 24 year old female with a past medical history of hypothyroidism here today for evaluation of vaginal bleeding. The patient was seen 2 days ago for vaginal bleeding, had an HCG of 14, and was told to return to the ED today for a repeat HCG and US. Patient states that since her initial ED presentation she has had continued heavy vaginal bleeding as well as suprapubic crampy discomfort. Patient denies headache, lightheadedness. Denies fever, chills. Denies chest pain, shortness of breath. Denies nausea, vomiting, diarrhea. Allergies: NKA - Physicial Exam PE: 12/05/19 02:00 GENERAL: The patient is awake, alert, and fully oriented, Nontoxic - in no acute distress. ABDOMEN: Soft, mild suprapubic tenderness, no guarding, no rebound. No CVA tenderness - Medical Decision Making 12/05/19 00:39 24y F hx hypothyroidism presents with persistent vaginal bleeing, was here a few days ago, returns for repeat beta and pelvic ultrasound. No signs of symptomatic anemia. 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
== END 2019-12-05 03:40 | disposition home or self-care (01) ==
LOC: JER 23:19
DX: O26.891 Other specified pregnancy related conditions, first trimester (principal); O02.1 Missed abortion; Z3A.01 Less than 8 weeks gestation of pregnancy; O36.80X0 Pregnancy with inconclusive fetal viability, not applicable or unspecified
CPT/HCPCS: 36415; 76817-TC; 80053; 84702; 85025; 99283-25

== ENCOUNTER → 2023-03-13 | Day surgery (SDC) | payer OTHER | END | disposition home or self-care (01) | LOC: JRADIR 09:18 | PROVIDERS: ATTEND Internal Medicine Endocrinology, Diabetes & Metabolism | PROC: 0G9K3ZX Drainage of Thyroid Gland, Percutaneous Approach, Diagnostic (ICD-10-PCS; principal; 2023-03-13) | DX: E06.3 Autoimmune thyroiditis (principal) | CPT/HCPCS: 10005; 76942; 88173; 88305-TC ==

== ENCOUNTER 2024-03-19 03:54 | Day surgery (SDC) | payer OTHER ==
[2024-03-12 14:59] VITALS: BMI 34.7
[2024-03-19] MEDS ORDERED: ONDANSETRON 4 MG/2 ML VIAL ONE ×2 (13:38→18:56)
[2024-03-19] MEDS ORDERED: DEXAMETHASONE SOD PHOSPHATE 4 MG/1 ML VIAL ONE (13:38)
[2024-03-19] MEDS ORDERED: SODIUM CHLORIDE 0.9% P/F 10 ML VIAL IJ ONE (13:38)
[2024-03-19] MEDS ORDERED: LIDOCAINE HCL/PF 2% SDV 5ML VIAL ONE (13:38)
[2024-03-19] MEDS ORDERED: ceFAZolin SODIUM 1 GM VIAL ONE (13:38)
[2024-03-19] MEDS ORDERED: SUCCINYLCHOLINE CHLORIDE 200 MG/10 ML SYRINGE ONE (13:39)
[2024-03-19] MEDS ORDERED: ROCURONIUM BROMIDE 50 MG/5 ML SYRINGE ONE (13:39)
[2024-03-19] MEDS ORDERED: MIDAZOLAM HCL 2 MG/2 ML SINGLE DOSE VIAL ONE ×2 (13:40→15:09)
[2024-03-19] MEDS ORDERED: PROPOFOL 40 ML ONE (13:46)
[2024-03-19] MEDS ORDERED: FENTANYL CITRATE/PF 50 MCG/ML VIAL ONE ×10 (13:47→20:03)
[2024-03-19] MEDS ORDERED: oxyCODONE HCL 5 MG TABLET PO PRN (14:00)
[2024-03-19] MEDS ORDERED: LIDOCAINE 1%/EPI 1:100000 (20 ML MULTI DOSE VIAL) ONE (14:52)
[2024-03-19] MEDS ORDERED: BUPIVACAINE HCL/PF 0.5% (5MG/ML) 10 ML VIAL ONE (14:52)
[2024-03-19] MEDS ORDERED: PROPOFOL 20 ML ONE ×2 (15:16→16:19)
[2024-03-19] MEDS: ceFAZolin SODIUM 1 GM VIAL IVPB ONE (15:35)
[2024-03-19] MEDS: BUPIVACAINE HCL/PF 0.5% (5MG/ML) 10 ML VIAL IJ ONE (15:49)
[2024-03-19] MEDS: LIDOCAINE 1%/EPI 1:100000 (20 ML MULTI DOSE VIAL) IJ ONE (15:49)
[2024-03-19] MEDS ORDERED: NEOSTIGMINE METHYLSULFATE 0.5 MG/1 ML - 10 ML MDV ONE (18:02)
[2024-03-19] MEDS ORDERED: CALCIUM CARBONATE 650 MG TABLET PO SCH (18:45)
[2024-03-19] MEDS: ONDANSETRON 4 MG/2 ML VIAL IVPUSH PRN (19:02)
[2024-03-19] MEDS: CALCITRIOL 1 MCG/ML BOT PO ONE (19:47)
[2024-03-19] MEDS: CALCIUM (OYSTER SHELL) 500 MG TABLET (FP) PO SCH (20:00)
[2024-03-19] MEDS: LACTATED RINGERS SOLUTION 1,000 ML IV SCH (20:20)
[2024-03-19] MEDS: oxyCODONE HCL 5 MG TABLET PO PRN (20:59)
[2024-03-20] MEDS: ACETAMINOPHEN 1000 MG/100 ML BAG IVPB PRN (00:12)
[2024-03-20] MEDS: ONDANSETRON 4 MG/2 ML VIAL IVPUSH PRN (10:11)
[2024-03-20 11:43] LABS: POTASSIUM 4.5 mmol/L (3.5-5.1)
[2024-03-20 11:44] LABS: CALCIUM 8.9 mg/dL (8.5-10.1)
[2024-03-20 11:45] LABS: BLOOD UREA NITROGEN 11.3 mg/dL (7-18)
[2024-03-20 11:50] LABS: CREATININE 0.6 mg/dL (0.55-1.3)
[2024-03-20 12:09] VITALS: BP 156/89; PULSE 100; RESP 19; TEMP 97.7
== END 2024-03-20 13:52 | disposition home or self-care (01) ==
LOC: JASU-SURG 03:54 → JASUSAT 03:54 → J8W 20:39 → JASUSAT 03-20 13:52
PROVIDERS: ATTEND Surgery
PROC: 0GTK0ZZ Resection of Thyroid Gland, Open Approach (ICD-10-PCS; principal; 2024-03-19 12:00)
DX: E05.90 Thyrotoxicosis, unspecified without thyrotoxic crisis or storm (principal); E01.0 Iodine-deficiency related diffuse (endemic) goiter
CPT/HCPCS: 36415; 80048; 81025; 88307-TC; 94760; J0131

== ENCOUNTER 2024-04-21 11:03 | Emergency (ER) | payer OTHER ==
[2024-04-21 11:28] VITALS: BP 163/95; PULSE 81; RESP 17; TEMP 98.2; BMI 33.9
== END 2024-04-21 14:24 | disposition home or self-care (01) ==
LOC: JERFT 11:03
DX: H92.01 Otalgia, right ear (principal); H60.91 Unspecified otitis externa, right ear
CPT/HCPCS: 99283-25